=== PATIENT | female | born 1990 | race Caucasian/White ===

== ENCOUNTER 2022-02-24 09:22 | Emergency (ER) | payer BC, OTHER ==
[~2022-02-24] VITALS: Ht 160 cm; Wt 62.0 kg
[2022-02-24] MEDS ORDERED: DOXY100T2 PO (09:36)
--- NOTE | 2022-02-24 09:36 | ED Cough/URI ---
General Chief Complaint: Cough/Cold/Flu Symptoms Stated Complaint: COUGH; CHEST CONGESTION Source: patient Exam Limitations: no limitations History of Present Illness Date Seen by Provider: Feb 24, 2022 Time Seen by Provider: 09:27 Initial Comments 31-year-old female with no pertinent past medical history coming in due to 5 days of intermittent fever, productive cough, diarrhea that is nonbloody in the setting of being around someone closely with influenza A. Took DayQuil shortly prior to arrival. Is otherwise denying any chest pain, abdominal pain, nausea, vomiting, weakness, numbness, rash, or any other concerns. LMP was 2 weeks ago. Allergies and Home Medications Allergies Coded Allergies: No Known Drug Allergies (Unverified , 02/24/22) Patient Home Medication List Home Medication List Reviewed: Yes Doxycycline Hyclate (Doxycycline Hyclate) 100 Mg Tablet, 100 MG PO BID Prescribed by: DARIN FALCON on 02/24/22 0936 Review of Systems Review of Systems Constitutional: fever EENTM: No blurred vision Respiratory: cough, short of breath Cardiovascular: No chest pain Gastrointestinal: No abdominal pain; diarrhea Genitourinary: no symptoms reported Musculoskeletal: no symptoms reported Skin: no symptoms reported Psychiatric/Neurological: No Symptoms Reported Hematologic/Lymphatic: No Symptoms Reported Immunological/Allergic: no symptoms reported All Other Systems Reviewed Negative Unless Noted: Yes Past Bkyoedc-Ylyptz-Jxoxlq Hx Patient Social History Tobacco Use?: No Substance use?: No Alcohol Use?: No Past Medical History Surgeries: No Physical Exam Vital Signs - First Documented 02/24/22 09:31 Temp 36.4 Pulse 98 Resp 16 B/P (MAP) 124/68 (86) Pulse Ox 97 O2 Delivery Room Air Capillary Refill : Height: '" Weight: lbs. oz. kg; BMI Method: General Appearance: WD/WN, no apparent distress Eyes: Bilateral Eye Normal Inspection HEENT: PERRL/EOMI, normal ENT inspection, pharynx normal Neck: non-tender, full range of motion, supple, normal inspection Respiratory: chest non-tender, no respiratory distress, no accessory muscle use, crackles (right mid) Cardiovascular: regular rate, rhythm, no edema, no murmur Gastrointestinal: normal bowel sounds, non tender, soft; No distended, No guarding, No rebound Extremities: normal range of motion, non-tender, normal inspection, no pedal edema, no calf tenderness, normal capillary refill Neurologic/Psychiatric: no motor/sensory deficits, alert, normal mood/affect Skin: normal color, warm/dry Lymphatic: no adenopathy Progress/Results/Core Measures Suspected Sepsis SIRS Temperature: Pulse: Respiratory Rate: Blood Pressure / Mean: Results/Orders My Orders Orders - DARIN FALCON MD Chest Pa/Lat (2 View) (02/24/22 09:30) Vital Signs/I&O 02/24/22 09:31 Temp 36.4 Pulse 98 Resp 16 B/P (MAP) 124/68 (86) Pulse Ox 97 O2 Delivery Room Air Capillary Refill : Progress Note : Progress Note 31-year-old female with above history coming in due to cough, mild dyspnea, and fever in the setting of being around someone positive for influenza A. ABCs were intact and vitals were stable on presentation. Physical exam with some crackles on the right compared to the left with no structural lung disease. Offered flu testing, but given she has been around someone with influenza A, we will forego this at this time since that is the likely diagnosis. Chest x-ray performed. Diagnostic Imaging Diagonstic Imaging: Xray Plain Films/CT/US/NM/MRI: chest Comments No obvious pneumonia or pneumothorax on chest x-ray my interpretation Departure Impression Primary Impression: Influenza Disposition: 01 HOME, SELF-CARE Condition: Stable Departure-Patient Inst. Referrals: NO,LOCAL PHYSICIAN (PCP/Family) Primary Care Physician Patient Instructions: Flu, Adult (DC) Add. Discharge Instructions: Your lungs do sound different on the right which can be developing/worsening infection. Antibiotics were sent to take for the next week. Continue to take Dayquil/Nyquil as needed. Scripts Benzonatate (TESSALON PERLES) 100 Mg Capsule 100 MG PO TID PRN for COUGH for 7 Days, #21 CAP Prov: DARIN FALCON MD 02/24/22 Doxycycline Hyclate (Doxycycline Hyclate) 100 Mg Tablet 100 MG PO BID for 7 Days, #14 TAB 0 Refills Prov: DARIN FALCON MD 02/24/22 Work/School Note: Work Release Form Date Seen in the Emergency Department: Feb 24, 2022 Return to Work: Feb 27, 2022 Restrictions: Return-No Fever (24hrs) DARIN FALCON MD Feb 24, 2022 09:36
[2022-02-24] MEDS ORDERED: BENZ100C18 PO (09:42)
[2022-02-24 09:44] VITALS: BP 124/68
--- NOTE | 2022-02-24 09:48 | Diagnostic Imaging Report ---
EXAMINATION: Chest 2 view HISTORY: persistent cough, flu COMPARISON: None available. FINDINGS: Heart size and pulmonary vasculature are normal. The lungs are clear without consolidation, pleural effusion, or pneumothorax. The osseous structures are intact. IMPRESSION: 1. No acute radiographic abnormality in the chest. Dictated by: Dictated on workstation # [id number]
== END 2022-02-24 09:44 | disposition home or self-care (01) ==
LOC: EDUNIT# 09:22 → ER FS 09:24
DX: J10.1 Influenza due to other identified influenza virus with other respiratory manifestations (principal); R19.7 Diarrhea, unspecified
CPT/HCPCS: 71046